=== PATIENT | male | born 1970 | race Caucasian/White ===

== ENCOUNTER → 2017-02-15 | Outpatient (REF) | payer OTHER | LOC: M LAB REF 13:09 | PROVIDERS: ATTEND Nurse Practitioner Adult Health | DX: L02.413 Cutaneous abscess of right upper limb (principal) ==

== ENCOUNTER 2019-04-02 06:49 | Day surgery (SDC) | payer OTHER ==
[~2019-04-02] VITALS: Ht 180.3 cm; Wt 81.2 kg
[~2019-04-02 06:49] MED LIST: MULTCAP PO; NS 1,000 ML IV ONE
[2019-04-02] MEDS ORDERED: LIDOCAINE 2% INJ 100 MG/5 ML SDV (FOR ANES.) As Ordered ONE (07:09)
[2019-04-02] MEDS ORDERED: propofoL 200 MG/20 ML VIAL As Ordered ONE (07:09)
--- NOTE | 2019-04-02 07:57 | ROOR ---
Patient Name: John Corrigan Procedure Date: 04/02/2019 7:38 AM Date of : 1970 Age: 48 Room: [facility] Gender: Male Note Status: Finalized Procedure: Total Colonoscopy to Cecum + Cold Snare Polypectomy Indications: Screening for colorectal malignant neoplasm Providers: Jonny Ross MD Referring MD: ANTONY FINLEY JR, MD Requesting Provider: Medicines: Monitored Anesthesia Care Complications: No immediate complications. Procedure: Pre-Anesthesia Assessment: - The heart rate, respiratory rate, oxygen saturations, blood pressure, adequacy of pulmonary ventilation, and response to care were monitored throughout the procedure. The Colonoscope was introduced through the anus and advanced to the cecum, identified by appendiceal orifice and ileocecal valve. The colonoscopy was performed without difficulty. The patient tolerated the procedure well. The quality of the bowel preparation was excellent. Findings: The perianal and digital rectal examinations were normal. Non-bleeding internal hemorrhoids were found during retroflexion. The hemorrhoids were small and Grade I (internal hemorrhoids that do not prolapse). A small polyp was found at 20 cm proximal to the anus. The polyp was sessile. The polyp was removed with a cold snare. Resection and retrieval were complete. No other significant abnormalities were identified in a careful examination of the remainder of the colon. The exam was otherwise without abnormality on direct and retroflexion views. Impression: - Non-bleeding internal hemorrhoids. - One small polyp at 20 cm proximal to the anus, removed with a cold snare. Resected and retrieved. - The examination was otherwise normal on direct and retroflexion views. - The exam was otherwise normal to the cecum. Recommendation: - Patient has a contact number available for emergencies. The signs and symptoms of potential delayed complications were discussed with the patient. Return to normal activities tomorrow. Written discharge instructions were provided to the patient. - High fiber diet. - Discharge patient to home. - Continue present medications. - Await pathology results. - Telephone GI clinic for pathology results in 1 week. - Repeat colonoscopy in 3 years for surveillance based on pathology results. - Return to referring physician. - The findings and recommendations were discussed with the patient's family. Jonny Ross MD Jonny Ross MD 04/02/2019 7:57:22 AM Electronically signed by Jonny Ross MD Number of Addenda: 0 Note Initiated On: 04/02/2019 7:38 AM Estimated Blood Loss: Estimated blood loss: none.
[2019-04-02 08:15] VITALS: BP 128/78
== END 2019-04-02 08:22 | disposition home or self-care (01) ==
LOC: M OPP 06:49
PROVIDERS: ATTEND Internal Medicine Gastroenterology
DX: Z12.11 Encounter for screening for malignant neoplasm of colon (principal); K64.0 First degree hemorrhoids; D12.6 Benign neoplasm of colon, unspecified

== ENCOUNTER 2020-11-15 00:59 | Emergency (ER) | payer OTHER ==
[~2020-11-15] VITALS: Ht 182.9 cm; Wt 82.9 kg
[~2020-11-15 00:59] MED LIST changes: -NS 1,000 ML IV ONE
[2020-11-15] MEDS ORDERED: KETOROLAC 30 MG/ML 1ML VIAL IV ONE (01:40)
[2020-11-15] MEDS ORDERED: NS 1,000 ML IV ONE ×2 (01:40→02:55)
[2020-11-15] MEDS ORDERED: ONDANSETRON 4MG/2ML VIAL IV ONE (01:40)
[2020-11-15] MEDS: MORPHINE 2 MG/ML 1ML VIAL (J2270) IV PRN ×2 (01:44→01:54)
[2020-11-15 01:58] LABS: BASO % 0.3 % (0.0-1.0); EOS # 0.1 10^3/uL (0.0-0.5); EOS % 0.7 % (0.0-3.0); HEMATOCRIT 45.1 % (42.0-52.0); HEMOGLOBIN 15.7 g/dl (13.5-17.5); LYMPH # 1.7 10^3/uL (1.5-5.0); LYMPH % 18.8 % (24.0-44.0); MEAN CORPUSCULAR HEMOGLOBIN 29.6 pg (27.0-33.0); MEAN CORPUSCULAR HGB CONC 34.8 g/dl (32.0-36.5); MEAN CORPUSCULAR VOLUME 85.1 fl (80.0-96.0); MONO # 0.6 10^3/uL (0.0-0.8); MONO % 6.8 % (2.0-8.0); NEUTROPHILS # 6.5 10^3/uL (1.5-8.5); NEUTROPHILS % 73.1 % (36.0-66.0); PLATELET COUNT, AUTOMATED 202 10^3/uL (150-450)
[2020-11-15] MEDS ORDERED: METOCLOPRAMIDE INJ 10MG/2ML VIAL (J2765 PER 1) IV ONE (02:30)
[2020-11-15 02:40] LABS: ALBUMIN 4.3 GM/DL (3.2-5.2); BILIRUBIN,DIRECT 0.3 MG/DL (0.0-0.2); BILIRUBIN,TOTAL 1.5 MG/DL (0.2-1.0); CALCIUM LEVEL 10.1 MG/DL (8.5-10.1); CREATININE FOR GFR 1.37 MG/DL (0.70-1.30); GLOMERULAR FILTRATION RATE 58.1 (>56); TOTAL PROTEIN 7.6 GM/DL (6.4-8.2)
--- NOTE | 2020-11-15 02:58 | REPVR ---
PROCEDURE INFORMATION: Exam: CT Abdomen And Pelvis Without Contrast Exam date and time: 11/15/2020 1:37 AM Age: 50 years old Clinical indication: Abdominal pain; Flank; Left; Additional info: Left flank pain, suspected stone TECHNIQUE: Imaging protocol: Computed tomography of the abdomen and pelvis without contrast. Radiation optimization: All CT scans at this facility use at least one of these dose optimization techniques: automated exposure control; mA and/or kV adjustment per patient size (includes targeted exams where dose is matched to clinical indication); or iterative reconstruction. COMPARISON: No relevant prior studies available. FINDINGS: Mediastinal space: Small gastroesophageal sliding type hiatal hernia. Liver: Normal. No mass. Gallbladder and bile ducts: Normal. No calcified stones. No ductal dilation. Pancreas: Normal. No ductal dilation. Spleen: Normal. No splenomegaly. Adrenal glands: Normal. No mass. Kidneys and ureters: 7 x 6 mm obstructing mid to upper left ureteral calculus with secondary moderate left hydronephrosis and hydroureter. Additional nonobstructing bilateral renal calculi measuring up to 5 mm. Stomach and bowel: Mild diverticulosis. Appendix: No evidence of appendicitis. Intraperitoneal space: Unremarkable. No free air. No significant fluid collection. Vasculature: Unremarkable. No abdominal aortic aneurysm. Lymph nodes: Unremarkable. No enlarged lymph nodes. Urinary bladder: Unremarkable as visualized. Reproductive: Unremarkable as visualized. Bones/joints: Unremarkable. No acute fracture. Soft tissues: Unremarkable. IMPRESSION: 7 x 6 mm obstructing mid to upper left ureteral calculus with secondary moderate left hydronephrosis and hydroureter. Additional nonobstructing bilateral renal calculi measuring up to 5 mm. Electronically signed by: Rachid Cisneros On 11/15/2020 02:57:19 AM
[2020-11-15] MEDS ORDERED: TAMSULOSIN 0.4 MG CAP PO ONE (03:20)
[2020-11-15] MEDS ORDERED: KETO10TAB PO (06:09)
[2020-11-15] MEDS ORDERED: PERC5TAB12 PO (06:09)
[2020-11-15] MEDS ORDERED: ONDA4TAB6 PO (06:09)
[2020-11-15] MEDS ORDERED: FLOM0.4C39 PO (06:09)
[2020-11-15 06:15] VITALS: BP 125/81
== END 2020-11-15 06:35 | disposition home or self-care (01) ==
LOC: M ED 00:59
DX: N13.1 Hydronephrosis with ureteral stricture, not elsewhere classified (principal)
CPT/HCPCS: 74176; 80048; 80076; 81001; 83690; 85025; 93041; 96361; 96374; 96375; 99285; J1885; J2270; J2405; J2765

== ENCOUNTER → 2020-12-18 | Outpatient (CLI) | payer OTHER ==
[~2020-12-18] MED LIST changes: +FLOM0.4C39 PO; +KETO10TAB PO; +ONDA4TAB6 PO; +PERC5TAB12 PO
--- NOTE | 2020-12-18 16:18 | REP ---
INDICATION: CALCULUS OF KIDNEY COMPARISON: 12/04/2005 TECHNIQUE: Supine view of the abdomen and pelvis. FINDINGS: Bowel gas pattern is nonspecific and without obstruction or perforation. No organomegaly. Skeletal structures intact. Evaluation of the urinary tract system is limited although small calcifications in the lower pole left kidney are suspected. There also appears to be a somewhat ovoid/triangular 6 mm calcification overlying the left sacral wing which may represent ureteral stone. IMPRESSION: Nonobstructing left renal and possible distal left ureteral calculi suggested. <Electronically signed by Julio Summers > 12/18/20 [id number]
== END ==
LOC: M PLAIMG 15:39
PROVIDERS: ATTEND Urology
DX: N20.0 Calculus of kidney (principal)

== ENCOUNTER → 2021-01-21 | Outpatient (CLI) | payer OTHER ==
[~2021-01-21] MED LIST changes: +L-LY500T15 PO; +VITMTA PO
== END ==
LOC: M LABSMTC 09:21
PROVIDERS: ATTEND Anesthesiology
DX: Z01.818 Encounter for other preprocedural examination (principal); Z11.52 Encounter for screening for COVID-19

== ENCOUNTER → 2021-01-21 | Outpatient (CLI) | payer OTHER ==
--- NOTE | 2021-01-21 09:02 | REP ---
INDICATION: LEFT URETERAL STONE COMPARISON: None. TECHNIQUE: PA and lateral. FINDINGS: The mediastinum and cardiac silhouette are normal. The lung whittaker are clear and without acute consolidation, effusion, or pneumothorax. The skeletal structures are intact and normal. IMPRESSION: No acute cardiopulmonary process. <Electronically signed by Julio Summers > 01/21/21 0824
== END ==
LOC: M PLAIMG 08:22
PROVIDERS: ATTEND Urology
DX: N20.1 Calculus of ureter (principal)

== ENCOUNTER 2021-01-26 14:44 | Day surgery (SDC) | payer OTHER ==
[~2021-01-26] VITALS: Ht 182.9 cm; Wt 85.3 kg
[~2021-01-26 14:44] MED LIST changes: +CIPROFLOXACIN 400 MG in IV 1 EA IV ONE; +LR 1,000 ML IV ONE
[2021-01-26] MEDS ORDERED: CONRAY-60 60% 50ML VIAL (Q9961) As Ordered ONE (17:31)
[2021-01-26] MEDS ORDERED: MIDAZOLAM INJ 2MG/2ML VIAL (J2250 PER 1MG) As Ordered ONE (17:43)
[2021-01-26] MEDS ORDERED: fentaNYL 100 MCG/2 ML INJECTION As Ordered ONE (17:43)
[2021-01-26] MEDS ORDERED: LIDOCAINE 2% 100MG/5ML SDV (FOR ANES.) As Ordered ONE (17:43)
[2021-01-26] MEDS ORDERED: propofoL 200 MG/20 ML VIAL As Ordered ONE (17:43)
[2021-01-26] MEDS ORDERED: ONDANSETRON 4MG/2ML VIAL As Ordered ONE (18:22)
[2021-01-26] MEDS ORDERED: KETOROLAC 60MG 2ML VIAL As Ordered ONE (18:22)
[2021-01-26] MEDS ORDERED: ACETAMINOPHEN 1000MG 100ML IV BTL (OFIRMEV) (J0131 PER 10MG) As Ordered ONE ×2 (18:22→18:23)
[2021-01-26] MEDS ORDERED: dexameTHASONE 4 MG/ML 1ML VIAL (J1100 PER 1MG) As Ordered ONE (18:22)
[2021-01-26] MEDS ORDERED: oxyCODONE 5MG TAB PO PRN (19:25)
[2021-01-26] MEDS ORDERED: fentaNYL 100 MCG/2 ML INJECTION IV PRN (19:25)
[2021-01-26] MEDS ORDERED: HYDROMORPHONE HCL 0.5 MG/ 0.5 ML SYRINGE (J1170 PER 1) IV PRN (19:25)
[2021-01-26] MEDS ORDERED: ONDANSETRON 4MG/2ML VIAL IV PRN (19:25)
[2021-01-26] MEDS ORDERED: LR 1,000 ML IV SCH (19:25)
[2021-01-26] MEDS ORDERED: KETOROLAC 30 MG/ML 1ML VIAL IV PRN (19:25)
[2021-01-26 20:15] VITALS: BP 163/91
== END 2021-01-26 20:34 | disposition home or self-care (01) ==
LOC: M SDC 14:44
PROVIDERS: ATTEND Urology
DX: N20.1 Calculus of ureter (principal)
CPT/HCPCS: 52332; 74420; 87086; C1769; C2617; J0131; J1100; J2250; J2405; J3010; Q9961

== ENCOUNTER → 2021-02-12 | Outpatient (CLI) | payer OTHER ==
[~2021-02-12] MED LIST changes: +BACT800T5 PO; -CIPROFLOXACIN 400 MG in IV 1 EA IV ONE; +HYDR-3713 PO; -LR 1,000 ML IV ONE; +OXYB5TAB10 PO; +PYRI1TAB5 PO
[2021-02-13 10:53] LABS: HEMATOCRIT 43.6 % (42.0-52.0); HEMOGLOBIN 14.7 g/dl (13.5-17.5); MEAN CORPUSCULAR HEMOGLOBIN 29.2 pg (27.0-33.0); MEAN CORPUSCULAR HGB CONC 33.7 g/dl (32.0-36.5); MEAN CORPUSCULAR VOLUME 86.7 fl (80.0-96.0); PLATELET COUNT, AUTOMATED 254 10^3/uL (150-450); RED BLOOD COUNT 5.03 10^6/uL (4.30-6.10); WHITE BLOOD COUNT 4.6 10^3/uL (4.0-10.0)
== END ==
LOC: M PLALAB 14:30
PROVIDERS: ATTEND Urology
DX: N20.1 Calculus of ureter (principal)

== ENCOUNTER → 2021-02-13 | Outpatient (REF) | payer OTHER ==
[2021-02-13 18:56] LABS: ALBUMIN 3.7 GM/DL (3.2-5.2); ALT/SGPT 21 U/L (12-78); BILIRUBIN,TOTAL 0.8 MG/DL (0.2-1.0); BLOOD UREA NITROGEN 19 MG/DL (7-18); CALCIUM LEVEL 9.5 MG/DL (8.5-10.1); CARBON DIOXIDE LEVEL 32 MEQ/L (21-32); CHLORIDE LEVEL 108 MEQ/L (98-107); CREATININE FOR GFR 1.16 MG/DL (0.70-1.30); GLOMERULAR FILTRATION RATE > 60.0 (>56); GLUCOSE, FASTING 104 MG/DL (70-100); POTASSIUM SERUM 4.2 MEQ/L (3.5-5.1); SODIUM LEVEL 145 MEQ/L (136-145); TOTAL PROTEIN 6.8 GM/DL (6.4-8.2)
== END ==
LOC: M PLALAB 17:08
PROVIDERS: ATTEND Urology
DX: N20.1 Calculus of ureter (principal)

== ENCOUNTER → 2021-02-14 | Outpatient (CLI) | payer OTHER | LOC: M LABSMTC 09:15 | PROVIDERS: ATTEND Anesthesiology | DX: Z11.52 Encounter for screening for COVID-19 (principal); Z20.822 Contact with and (suspected) exposure to COVID-19 ==

== ENCOUNTER 2021-02-19 09:20 | Day surgery (SDC) | payer OTHER ==
[~2021-02-19] VITALS: Ht 182.9 cm; Wt 82.3 kg
[~2021-02-19 09:20] MED LIST changes: -BACT800T5 PO; +CIPROFLOXACIN 400 MG in IV 1 EA IV ONE; -HYDR-3713 PO; +LR 1,000 ML IV ONE; -OXYB5TAB10 PO; -PYRI1TAB5 PO
[2021-02-19] MEDS ORDERED: CONRAY-60 60% 50ML VIAL (Q9961) As Ordered ONE (10:13)
--- NOTE | 2021-02-19 11:55 | ROOPDOC ---
[facility] Report Of Operation Report of Operation DATE OF PROCEDURE: 02/19/21 PREPROCEDURE DIAGNOSES: [left ureteral stone]. POSTPROCEDURE DIAGNOSES: [same]. PROCEDURE PERFORMED: [cysto, fluoro, rig ureteroscopy, laser litho, basket stone extraction, stent change LEFT SIDE]. SURGEON: [Daisy Castro MD BOBTAIL DRIVER: [none], MD ANESTHESIA: [general]. ESTIMATED BLOOD LOSS: Approximately [2] mL. COMPLICATIONS: [none]. REMARKS: [50yo wm with left ureteral stone s/p stent. Ureteroscopy to remove stone. Informed consent obtained. Risks discussed including infection, pain, bleeding, scarring, failure of surgery, need for more surgery, injury to gu tract and others.]. FINDINGS: SPECIMENS REMOVED: [fragment of stone] PROCEDURE NOTE: . DESCRIPTION OF PROCEDURE: [I met with the patient in the preop area and again discussed surgery. He wished to proceed. Patient brought to the OR room. General anesthesia secured without difficulty. Dorsolithotomy position. Well- padded. Prepped and draped in usual sterile fashion. Timeout performed. Surgery done under antimicrobial coverage. Rigid cystoscopy was performed. The stent on the left was identified and pulled to the external urethral meatus with a rigid grasper after which a wire was passed through it into the kidney as seen using fluoroscopy. The stent was then removed. The wire was secured to the drapes. Rigid ureteroscopy was performed. A stone was encountered in the mid ureter. Too large for simple extraction. Very black in color. Laser lithotripsy was performed. It worked well. I limited use of irrigation to prevent migration of fragments into the kidney. A stone basket was used to retrieve the larger fragments. One was collected and handed off. Once satisfied a 6 [place] multilength stent was placed using the Seldinger technique. Proper positioning was confirmed. Fluoroscopy was used intermittently during the procedure.]. EDUARDO CASTRO MD Feb 19, 2021 11:55
[2021-02-19] MEDS ORDERED: fentaNYL 100 MCG/2 ML INJECTION (J3010) As Ordered ONE (11:59)
[2021-02-19] MEDS ORDERED: LIDOCAINE 2% 100MG/5ML SDV (FOR ANES.) As Ordered ONE (11:59)
[2021-02-19] MEDS ORDERED: propofoL 200 MG/20 ML VIAL As Ordered ONE (11:59)
[2021-02-19] MEDS ORDERED: MIDAZOLAM INJ 2MG/2ML VIAL (J2250 PER 1MG) As Ordered ONE (11:59)
[2021-02-19] MEDS ORDERED: dexameTHASONE 4 MG/ML 1ML VIAL (J1100 PER 1MG) As Ordered ONE (12:00)
[2021-02-19] MEDS ORDERED: ONDANSETRON 4MG/2ML VIAL As Ordered ONE (12:00)
[2021-02-19] MEDS ORDERED: ACETAMINOPHEN 1000MG 100ML IV BTL (OFIRMEV) (J0131 PER 10MG) As Ordered ONE (12:17)
[2021-02-19] MEDS ORDERED: HYDR-3713 PO (12:42)
[2021-02-19] MEDS ORDERED: PYRI1TAB5 PO (12:42)
[2021-02-19] MEDS ORDERED: BACT800T5 PO (12:42)
[2021-02-19] MEDS ORDERED: OXYB5TAB10 PO (12:42)
--- NOTE | 2021-02-19 13:10 | REP ---
INDICATION: LEFT STENT PLACEMENT. COMPARISON: None. TECHNIQUE: Intraoperative fluoroscopic imaging. FINDINGS: Satisfactory left ureteral stent placement. Total fluoroscopic time 12 seconds. IMPRESSION: Left ureteral stent placement. <Electronically signed by Julio Summers > 02/19/21 1699
[2021-02-19] MEDS ORDERED: fentaNYL 100 MCG/2 ML INJECTION (J3010) IV PRN (13:20)
[2021-02-19] MEDS ORDERED: LR 1,000 ML IV SCH ×2 (13:20)
[2021-02-19] MEDS ORDERED: ONDANSETRON 4MG/2ML VIAL IV PRN (13:20)
[2021-02-19] MEDS ORDERED: oxyCODONE 5MG TAB PO PRN (13:20)
[2021-02-19 14:35] VITALS: BP 156/88
[2021-02-24 14:08] LABS: CA Oxalate Dihy 20 % (.); Ca Ox Monohydrate 80 % (.); Size 4x3 mm (.)
== END 2021-02-19 14:55 | disposition home or self-care (01) ==
LOC: M SDC 09:20
PROVIDERS: ATTEND Urology
DX: N20.0 Calculus of kidney (principal)
CPT/HCPCS: 52356; 74420; 82365; 88300; C1769; C1894; C2617; J0131; J0744; J1100; J2250; J2405; J3010; Q9961

== ENCOUNTER → 2021-11-06 | Outpatient (CLI) | payer OTHER ==
[~2021-11-06] MED LIST changes: +BACT800T5 PO; -CIPROFLOXACIN 400 MG in IV 1 EA IV ONE; +HYDR-3713 PO; -LR 1,000 ML IV ONE; +OXYB5TAB10 PO; +PYRI1TAB5 PO
== END ==
LOC: M WUC 15:23
PROVIDERS: ATTEND Physician Assistant Medical
DX: R22.31 Localized swelling, mass and lump, right upper limb (principal)

== ENCOUNTER → 2021-12-09 | Outpatient (CLI) | payer OTHER ==
[~2021-12-09] MED LIST changes: +ISOVUE-370 76% 100ML VIAL As Ordered ONE
== END ==
LOC: M RAD 08:09
PROVIDERS: ATTEND Physician Assistant Medical
DX: R22.1 Localized swelling, mass and lump, neck (principal)
CPT/HCPCS: 70491; Q9967

== ENCOUNTER → 2022-03-17 | Outpatient (CLI) | payer OTHER ==
[~2022-03-17] MED LIST changes: -ISOVUE-370 76% 100ML VIAL As Ordered ONE
== END ==
LOC: M PLAIMG 08:41
PROVIDERS: ATTEND Urology
DX: N20.0 Calculus of kidney (principal)

== ENCOUNTER → 2022-03-25 | Outpatient (CLI) | payer OTHER | LOC: M PLARAD 09:54 | PROVIDERS: ATTEND Physician Assistant Surgical | DX: R22.31 Localized swelling, mass and lump, right upper limb (principal); M19.011 Primary osteoarthritis, right shoulder; M50.20 Other cervical disc displacement, unspecified cervical region ==

== ENCOUNTER → 2022-03-30 | Outpatient (CLI) | payer OTHER | LOC: M RAD 10:34 | PROVIDERS: ATTEND Physician Assistant Surgical | DX: R22.1 Localized swelling, mass and lump, neck (principal) ==

== ENCOUNTER → 2022-10-27 | Outpatient (CLI) | payer OTHER | LOC: M RAD 10:03 | PROVIDERS: ATTEND Nurse Practitioner Family | DX: R60.9 Edema, unspecified (principal) ==

== ENCOUNTER → 2022-11-19 | Outpatient (CLI) | payer OTHER | LOC: M RAD 09:40 | PROVIDERS: ATTEND Nurse Practitioner Family | DX: I82.402 Acute embolism and thrombosis of unspecified deep veins of left lower extremity (principal) ==

== ENCOUNTER 2023-06-06 11:00 | Day surgery (SDC) | payer OTHER ==
[~2023-06-06] VITALS: Ht 182.9 cm; Wt 82.0 kg
[~2023-06-06 11:00] MED LIST changes: +L-LY500T6 PO; +MULT-90 PO; -OXYB5TAB10 PO; +OXYB5TAB14 PO
[2023-06-06] MEDS: NS 1,000 ML IV ONE (11:10)
[2023-06-06 12:10] VITALS: TEMP 98.2
[2023-06-06 12:30] VITALS: BP 131/100; O2SAT 99
== END 2023-06-06 12:37 | disposition home or self-care (01) ==
LOC: M OPP 11:00
PROVIDERS: ATTEND Internal Medicine Gastroenterology
DX: Z12.11 Encounter for screening for malignant neoplasm of colon (principal); Z86.010 Personal history of colon polyps; D12.6 Benign neoplasm of colon, unspecified; K64.0 First degree hemorrhoids; K57.30 Diverticulosis of large intestine without perforation or abscess without bleeding